=== PATIENT | male | born 1970 ===

== ENCOUNTER 2023-05-12 01:00 | Emergency (ER) | payer BC, MEDICAID | END 2023-05-12 02:59 | disposition home or self-care (01) | LOC: DL.ED 01:00 | DX: M24.512 Contracture, left shoulder (principal) | CPT/HCPCS: 73060-LT; 99282; 99283 ==

== ENCOUNTER 2023-05-16 14:35 | Emergency (ER) | payer MEDICAID | END 2023-05-16 15:45 | LOC: DL.ED 14:35 | DX: S22.41XA Multiple fractures of ribs, right side, initial encounter for closed fracture (principal); Y04.0XXA Assault by unarmed brawl or fight, initial encounter | CPT/HCPCS: 71101-RT; 99282; 99283 ==